=== PATIENT | female | born 1995 | race Caucasian/White ===

== ENCOUNTER 2018-06-28 07:28 | Emergency (ER) | payer MEDICAID ==
[2018-06-28 07:43] VITALS: BP 112/87
--- NOTE | 2018-06-28 08:13 | ED Physician Documentation ---
PD HPI UPPER EXT INJURY - Stated complaint Stated Complaint: ARM PX - Chief complaint Chief Complaint: Ext Problem - History obtained from History obtained from: Patient - History of Present Illness Location: Right, Wrist Type of injury: Fall Where injury occurred: Home Timing - onset: How many days ago (2) Timing - duration: Days (2) Timing - details: Abrupt onset, Still present Improved by: Rest, Ice, Immobilization Worsened by: Moving, Palpating Associated symptoms: Swelling. No: Weakness, Numbness, Tingling Contributing factors: No: Anticoagulated Similar symptoms before: Has not had sx before Recently seen: Clinic - Additonal information Additional information: 22-year-old female was cleaning up in her house when she fell onto her outstretched right hand. She has pain in the right wrist over the ulnar area. She works at [employer] and does not have to go back to work for several days. Review of Systems Constitutional: denies: Fever Eyes: denies: Decreased vision Ears: denies: Ear pain Nose: denies: Congestion Throat: denies: Sore throat Respiratory: denies: Cough GI: denies: Vomiting Skin: denies: Rash Musculoskeletal: reports: Extremity pain, Joint pain, Joint swelling. denies: Neck pain, Back pain Neurologic: denies: Generalized weakness, Focal weakness, Numbness PD PAST MEDICAL HISTORY - Present Medications Home Medications: Ambulatory Orders Medication Instructions Recorded Confirmed No Known Home Medications 06/28/18 06/28/18 - Allergies Allergies/Adverse Reactions: Allergies Allergy/AdvReac Type Severity Reaction Status Date / Time No Known Drug Allergies Allergy Verified 06/28/18 07:39 PD ED PE NORMAL - Vitals Vital signs reviewed: Yes (tachy and hypertensive ) - General General: Alert and oriented X 3, No acute distress, Well developed/nourished - HEENT HEENT: Atraumatic, PERRL - Respiratory Respiratory: No respiratory distress - Derm Derm: Normal color, Warm and dry, No rash - Extremities Extremities: Other (There is point tenderness to the right ulna distally and pain with flexion/extension over the wrist joint. distal n/v is intact. ) - Neuro Neuro: No motor deficit, No sensory deficit Eye Opening: Spontaneous Motor: Obeys Commands Verbal: Oriented GCS Score: 15 - Psych Psych: Normal mood, Normal affect Results - Vitals Vitals: Vital Signs - 24 hr 06/28/18 07:37 Temperature 35.9 C L Heart Rate 101 H Respiratory 16 Rate Blood Pressure 112/87 H O2 Saturation 97 Oxygen O2 Source Room air - Rads (name of study) right wrist Radiology: Prelim report reviewed (Impression: 1. Subtle linear lucency at the mid scaphoid on a single view may be artifactual however nondisplaced fracture is not excluded. Dedicated scaphoid view could be considered for further evaluation. 2. Otherwise no acute osseous abnormality.), EMP read indepedently, See rad report Procedures - Splint (location) r wrist Splint applied by: Tech Type of splint: Fiberglass, Volar cock up Other: Patient tolerated well, No complications, Neurovascular intact, Good alignment, Sling provided PD MEDICAL DECISION MAKING - ED course Complexity details: reviewed results, re-evaluated patient, considered differential, d/w patient, d/w family ED course: 22 y/o female with a FOOSH and pain in the wrist has a sprained wrist and is placed into a fiberglass cock-up splint and we will give her a note for limited use of the right hand at work for 2 weeks. Departure - Departure Disposition: 01 Home, Self Care Clinical Impression: Right wrist sprain Qualifiers: Encounter type: initial encounter Qualified Code(s): S63.501A - Unspecified sprain of right wrist, initial encounter Condition: Stable Instructions: ED Sprain Wrist Follow-Up: Isacc Galindo ARNP [Primary Care Provider] - Forms: Activity restrictions
--- NOTE | 2018-06-28 08:59 | XRAY Report ---
Reason: fall night with pain and swelling Procedure Date: 06/28/2018 Accession Number: [id number] / [id number] Procedure: XR - Wrist 3 View RT CPT Code: FULL RESULT: EXAM: RIGHT WRIST RADIOGRAPHY EXAM DATE: 06/28/2018 07:46 AM. CLINICAL HISTORY: COMPARISON: None. TECHNIQUE: 3 views. FINDINGS: Bones: Subtle linear lucency at the mid scaphoid on the AP view may be artifactual however nondisplaced fracture is not excluded. Otherwise no fractures or bone lesions. Joints: Unremarkable. Soft Tissues: Unremarkable. IMPRESSION: 1. Subtle linear lucency at the mid scaphoid on a single view may be artifactual however nondisplaced fracture is not excluded. Dedicated scaphoid view could be considered for further evaluation. 2. Otherwise no acute osseous abnormality. If there is snuff box tenderness, or clinical suspicion of radiographically occult scaphoid fracture, immobilization with repeat radiograph in 7-10 days, or alternatively MR, is recommended. RADIA
== END 2018-06-28 09:13 | disposition home or self-care (01) ==
LOC: ED 07:28
DX: S63.501A Unspecified sprain of right wrist, initial encounter (principal); W18.30XA Fall on same level, unspecified, initial encounter; Y93.E9 Activity, other interior property and clothing maintenance; Y92.009 Unspecified place in unspecified non-institutional (private) residence as the place of occurrence of the external cause
CPT/HCPCS: 29125; 99282; 99283

== ENCOUNTER 2018-09-19 18:56 | Emergency (ER) | payer MEDICAID ==
[2018-09-19] MEDS ORDERED: ACETAMINOPHEN 325 MG TABLET PO STA (19:32)
--- NOTE | 2018-09-19 19:41 | ED Physician Documentation ---
History of Present Illness - Stated complaint Stated Complaint: BLEED POST OP TONSILLECTOMY - Chief complaint Chief Complaint: General - History obtained from History obtained from: Patient - History of Present Illness Timing: Today Pain level max: 6 Pain level now: 5 Improved by: Nothing Worsened by: Nothing - Additonal information Additional information: 22-year-old female presents the emergency department status post tonsillectomy yesterday with Dr. Brice from [facility] performed at [facility]. She awoke from a nap today and had bleeding that lasted approximately 5-10 minutes. Now resolved. No fevers. Review of Systems Constitutional: denies: Fever, Chills Cardiac: denies: Chest pain / pressure Respiratory: denies: Cough GI: denies: Vomiting : denies: Now EGA Skin: denies: Rash PD PAST MEDICAL HISTORY - Past Medical History Past Medical History: Yes Cardiovascular: None Respiratory: None Neuro: None Endocrine/Autoimmune: None GI: None ROLL HANDLER: None : None HEENT: None Psych: None Musculoskeletal: None Derm: None - Past Surgical History Past Surgical History: No HEENT: Myringotomy (tubes), Tonsil/Adenoidectomy - Present Medications Home Medications: Ambulatory Orders Medication Instructions Recorded Confirmed No Known Home Medications 06/28/18 06/28/18 - Allergies Allergies/Adverse Reactions: Allergies Allergy/AdvReac Type Severity Reaction Status Date / Time No Known Drug Allergies Allergy Verified 09/19/18 19:02 - Social History Does the pt smoke?: No Smoking Status: Never smoker Does the pt drink ETOH?: No Does the pt have substance abuse?: No - Immunizations Immunizations are current?: Yes - POLST Patient has POLST: No PD ED PE NORMAL - Vitals Vital signs reviewed: Yes - General General: Alert and oriented X 3, No acute distress, Well developed/nourished - HEENT HEENT: Moist mucous membranes, Other (Posterior oropharynx without any current bleeding. Eschar present over the postoperative sites) - Neck Neck: Supple, no meningeal sign - Cardiac Cardiac: RRR, Strong equal pulses - Respiratory Respiratory: No respiratory distress, Clear bilaterally - Derm Derm: Warm and dry - Neuro Neuro: Alert and oriented X 3 Results - Vitals Vitals: Vital Signs - 24 hr 09/19/18 19:02 Temperature 36.6 C Heart Rate 101 H Respiratory 16 Rate Blood Pressure 125/67 O2 Saturation 99 Oxygen O2 Source Room air PD MEDICAL DECISION MAKING - ED course Complexity details: considered differential, d/w patient, d/w wardrobe consultant (Dr. Salgado, on-call for ENT and recommend sticking to cool liquids and following up in the office) ED course: 22-year-old female with a postoperative hemorrhage from tonsillectomy yesterday. Resolved spontaneously. No further bleeding in the emergency department. Tolerating p.o. without difficulty. Will follow up with ENT for further care. Patient counseled regarding signs and symptoms for which I believe and urgent re-evaluation would be necessary. Patient with good understanding of and agreem ent to plan and is comfortable going home at this time This document was made in part using voice recognition software. While efforts are made to proofread this document, sound alike and grammatical errors may occur. Departure - Departure Disposition: 01 Home, Self Care Clinical Impression: Post-operative hemorrhage Qualifiers: Surgical complication system/body Area: digestive system Procedure type: digestive system Qualified Code(s): K91.840 - Postprocedural hemorrhage of a digestive system organ or structure following a digestive system procedure Condition: Good Instructions: ED Tonsillectomy Post Op Bleeding Follow-Up: Isacc Galindo, SINGLE STAYER OPERATOR [Primary Care Provider] - As Needed Comments: Return if you worsen. Follow-up with the ENT as scheduled. Stick to cold liquids
[2018-09-19 20:03] VITALS: BP 124/75
== END 2018-09-19 20:07 | disposition home or self-care (01) ==
LOC: ED 18:56
DX: K91.840 Postprocedural hemorrhage of a digestive system organ or structure following a digestive system procedure (principal)
CPT/HCPCS: 99283; A9270

== ENCOUNTER 2020-04-26 17:42 | Outpatient (CLI) | payer MEDICAID | END 2020-04-26 17:43 | disposition home or self-care (01) | LOC: COV 17:42 | PROVIDERS: ATTEND Family Medicine | DX: Z20.828 Contact with and (suspected) exposure to other viral communicable diseases (principal) ==

== ENCOUNTER 2020-04-29 08:40 | Outpatient (CLI) | payer MEDICAID | END 2020-04-29 23:59 | disposition home or self-care (01) | LOC: COV 08:40 | PROVIDERS: ATTEND Family Medicine | DX: U07.1 COVID-19 (principal) ==